=== PATIENT | female | born 1940 | race Caucasian/White ===

== ENCOUNTER 2017-03-24 08:43 | Outpatient (CLI) | payer MEDICARE ==
--- NOTE | 2017-03-24 11:01 | ULT ---
ABDOMINAL AORTIC ULTRASOUND: HISTORY: Abdominal bruit noted on physical exam. FINDINGS: Abdominal aorta shows mild atherosclerotic change. No evidence of abdominal aortic aneurysm. Proxim al abdominal aorta measures up to 2.5 cm diameter. The mid abdominal aorta measures 1.8 cm. The dis mikel abdominal aorta measures 1.3 cm. IMPRESSION: Mild atherosclerotic changes seen in the abdominal aorta. No evidence of abdominal aortic aneurysm. POS: [facility]
== END 2017-03-24 08:44 | disposition home or self-care (01) ==
LOC: ULT 08:43
PROVIDERS: ATTEND Family Medicine
DX: R09.89 Other specified symptoms and signs involving the circulatory and respiratory systems (principal)
CPT/HCPCS: 76775

== ENCOUNTER 2017-08-18 08:42 | Outpatient (CLI) | payer MEDICARE, OTHER | END 2017-08-18 08:43 | disposition home or self-care (01) | LOC: BICMAMMO 08:42 | PROVIDERS: ATTEND Family Medicine | DX: N63.10 Unspecified lump in the right breast, unspecified quadrant (principal) | CPT/HCPCS: 76642; 77066; G0279 ==

== ENCOUNTER 2019-03-23 06:54 | Day surgery (SDC) | payer MEDICARE ==
[2019-03-22 15:21] VITALS: BMI 26.5
[2019-03-23 08:13] VITALS: BP 143/69; TEMP 98.4
--- NOTE | 2019-03-23 09:38 | RAD ---
Lumbar spine myelogram: 03/23/2019 COMPARISON: None HISTORY: Back pain, radiculopathy FINDINGS: Informed consent obtained prior to the procedure. Display Fabrication Supervisor imaging of the lumbar spine demonst rates incompletely imaged spinal stimulating leads extending into the thoracic region. Extensive atherosclerotic calcification the abdominal aorta is noted. There is anterolisthesis of L4 on L5 matilda uring 7 mm. There is prominent facet hypertrophy at L4-5 and L5-S1 with prominent disc space narrowing and degenerative endplate change at the lumbosacral junction. Prominent right hip degenerat jagruti joint disease. There is a suture line within the pelvis. The patient was placed on the fluoroscopic table in the oblique prone position and skin overlying the lower lumbar spine was prepped and draped in normal sterile fashion. Skin overlying the L3-4 level was anesthetized with 1% buffered lidocaine. With intermittent fluoroscopic guidance, a 22-gauge spin al needle was advanced into the thecal sac and removal of the stylet yields clear cerebrospinal fluid. Subsequently, approximately 10 cc of iodinated contrast media was injected outlining nerve roots of t he cauda equina and filling the thecal sac. Needle was removed. Patient tolerated the procedure well. Patient was sent to the CT scanner for CT myelogram of the lumbar spine. Exposure data: 1.2 minutes of fluoroscopic time, 406.6 mcg/sq m. IMPRESSION: Successful myelogram of the lumbar spine.
--- NOTE | 2019-03-23 09:47 | CT ---
CT myelogram of thelumbar spine: 03/23/2019 COMPARISON:None available HISTORY:Back pain and radiculopathy TECHNIQUE: Serial axial CT imaging at2.5 mm through thelumbar spine with intrathecal contrast adminis tration. Coronal and sagittal reformatted imaging provided. Findings:Scattered atherosclerotic calcification of the abdominal aorta and its branches noted. There is nonspecific mild left-sided perinephric stranding with mild stranding adjacent to the renal pelvis and proximal left ureter. This may be related to inflammatory change or a degree of obstructive uropathy. Clinical correlation with urinalysis as well as consideration for dedicated CT of the abdomen/pelvis is advised. There is good opacification of the contents of the thecal sac. Conus medullaris terminates at the L1 level. T12-L1: There is mild disc space narrowing and mild disc bulge. Mild bilateral facet hypertrophy note d, right greater than left. No significant central canal or neural foraminal stenosis. L1-2: Mild disc bulge. Mild bilateral facet hypertrophy. No significant central canal or neural cathy inal stenosis. L2-3: Mild bilateral facet hypertrophy. No significant central canal or neural foraminal stenosis. L3-4: Mild bilateral facet hypertrophy. No significant central canal or neural foraminal stenosis. L4-5: Anterolisthesis of L4 on L5 measures 5 mm. There is prominent bilateral facet hypertrophy. Ther e is a moderate degree of central canal stenosis and there is moderate bilateral neural foraminal stenosis, left greater than right. L5-S1: There is disc space narrowing and vacuum disc formation with a disc osteophyte complex causing a mild degree of central canal stenosis. There is prominent bilateral facet hypertrophy with moderate/severe bilateral neural foraminal stenosis. No acute fracture or evidence of dislocation. No worrisome lytic or blastic bone lesion. Impression:Prominent lower lumbar spine degenerative change at L4-5 and L5-S1 with associated central canal and neural foraminal stenosis. There is stranding of the fat in the central perinephric region on the left and adjacent to the proxi mal left ureter which could be on the basis of inflammatory/infectious process or degree of obstructive uropathy. Recommend correlation with urinalysis and consideration for CT of the abdomen a nd pelvis CODE T
[2019-03-23] MEDS ORDERED: Iopamidol-M 200 41% 20 ML VIAL ONE (15:35)
== END 2019-03-23 09:45 | disposition home or self-care (01) ==
LOC: RAD 06:54 → EDSTATUS 08:00 → RAD 09:45
PROVIDERS: ATTEND Specialist
DX: M51.16 Intervertebral disc disorders with radiculopathy, lumbar region (principal); M48.061 Spinal stenosis, lumbar region without neurogenic claudication; M48.07 Spinal stenosis, lumbosacral region; M25.78 Osteophyte, vertebrae; I10 Essential (primary) hypertension; E78.5 Hyperlipidemia, unspecified; K21.9 Gastro-esophageal reflux disease without esophagitis; E03.9 Hypothyroidism, unspecified; M79.7 Fibromyalgia; Z79.899 Other long term (current) drug therapy; Z88.1 Allergy status to other antibiotic agents; Z88.2 Allergy status to sulfonamides; Z88.8 Allergy status to other drugs, medicaments and biological substances
CPT/HCPCS: 62304; 72132

== ENCOUNTER 2019-08-05 06:10 | Outpatient (CLI) | payer MEDICARE, OTHER | END 2019-08-05 06:11 | disposition home or self-care (01) | LOC: LABBT 06:10 | PROVIDERS: ATTEND Orthopaedic Surgery | DX: Z01.818 Encounter for other preprocedural examination (principal); Z11.59 Encounter for screening for other viral diseases; M16.11 Unilateral primary osteoarthritis, right hip | CPT/HCPCS: 93005; 93010 ==

== ENCOUNTER 2019-08-09 06:25 | Inpatient (IN) | payer MEDICARE, OTHER ==
--- NOTE | 2019-08-05 09:04 | HP ---
HISTORY OF PRESENT ILLNESS: The patient is a 79-year-old female with a long history of progressive problems with her right hip without injury. She has had pain with ambulation which has progressed despite rest, restriction of activities, lifestyle adjustments, use of a cane and a previous cortisone injection which gave her a temporary relief for 5 days. The pain is now interfering with day-to-day activities including walking, getting dressed, and sleeping. PAST MEDICAL HISTORY: The patient had a mild stroke in 2014. She has had chronic back problems and followed by Dr. Spicer with injections. She apparently had an accidental overdose of pain medication in January of 2019. She has a history of thyroid replacement, hypertension, left carotid endarterectomy. CURRENT MEDICATIONS: Include levothyroxine, lansoprazole, trazodone, amlodipine, Plavix, which she has stopped 1 week prior to anticipated surgery, losartan, pregabalin, diclofenac. ALLERGIES: BACTRIM, NALTREXONE, AND STATIN WHICH CAUSES WEAKNESS. FAMILY HISTORY: Otherwise unremarkable. SOCIAL HISTORY: Otherwise unremarkable. REVIEW OF SYSTEMS: Otherwise unremarkable. PHYSICAL EXAMINATION: GENERAL: Healthy female. HEENT: Unremarkable. NECK: Supple. CHEST: Clear. HEART: Regular rate and rhythm. ABDOMEN: Soft, nontender. PELVIC, RECTAL, BREASTS: Deferred. EXTREMITIES: Pertinent findings related to the right hip. Her leg lengths are equal. There is tenderness in the anterior and posterior hip. There is a right antalgic gait with a cane. There is pain with range of motion of the right hip and groin pain with internal rotation. NEUROVASCULAR: Intact. Distal pulses are trace. DIAGNOSTIC STUDIES: X-rays of the right hip reveal severe degenerative arthritis with no joint space remaining. There is a spinal cord stimulator visible in the left pelvic area. A CT scan of the lumbar spine reveals diffuse degenerative changes with some central and neural foraminal stenosis. IMPRESSION: 1. Degenerative arthritis of right hip. 2. Lumbar spondylosis. 3. History of thyroid replacement. 4. History of hypertension. PLAN: Right total hip replacement. The nature of the surgery, length of recovery, and potential complications such as infection, loss of motion, incomplete relief, thromboembolic phenomena, possible transfusion, need for revision have been discussed in detail. Job ID: [id number]
[2019-08-05 09:08] VITALS: BMI 30.2
[2019-08-05 10:31] LABS: #Basophils 0.1 thou/uL (0.0-0.2); #Eosinphils 0.4 thou/uL (0.0-0.7); #Lymphocytes 4.2 thou/uL (1.20-3.40); #Monocytes 1.1 thou/uL (0.11-0.59); #Neutrophils 7.1 thou/uL (1.40-6.50); %Basophils 0.7 % (0.0-1.0); %Lymphocytes 32.4 % (21.0-51.0); %Monocytes 8.7 % (0.0-10.0); %Neutrophils 55.3 % (42.0-75.0); Hemoglobin 13.3 g/dL (12.0-16.0); Mean Corpuscular HGB CONC 32.8 g/dL (32.0-36.0); Mean Corpuscular Hemoglobin 30.1 pg (27.0-31.0); Mean Corpuscular Volume 91.8 fL (78.0-98.0); Mean Platelet Volume 7.3 fL (7.4-10.4); Platelet Count 411 thou/uL (130-400); RBC Distribution Width 12.6 % (11.5-14.5); White Blood Cell (WBC) Count 12.8 thou/uL (4.8-10.8)
[2019-08-05 10:32] LABS: Bilirubin Negative (Negative); Blood, Urine Negative (Negative); Clarity Clear (Clear); Glucose, Urine (Dipstick) Normal (Negative); Leukocyte 250 Leu/uL (Negative); Nitrite Negative (Negative); Protein, Urine (Dipstick) Negative (Neg-Trace); RBC/HPF 0-3 HPF (0-3); Squamous Epithelial None Seen HPF (0-3); Urobilinogen Normal mg/dL (Less than 2)
[2019-08-05 10:36] LABS: INR-International Normal Ratio 0.9; Prothrombin Time 11.9 sec (12.0-14.7)
[2019-08-05 10:39] LABS: Bacteria/HPF 1+ HPF (None Seen)
[2019-08-05 11:03] LABS: Anion Gap 15 mmol/L (10-20); BUN (Urea Nitrogen) 11 mg/dL (9.8-20.1); Calc. Creatinine Clearance 0 mL/min (70-130); Calcium 9.5 mg/dL (7.8-10.44); Carbon Dioxide 23 mmol/L (23-31); Chloride 102 mmol/L (98-107); Estimated GFR-MDRD 57; Glucose 86 mg/dL (83-110); Potassium 4.3 mmol/L (3.5-5.1); Sodium 136 mmol/L (136-145)
[2019-08-05 18:20] LABS: SARS-CoV-2 MS2 Positive; SARS-CoV-2 N Gene Negative; SARS-CoV-2 S Gene Negative; SARS-CoV-2 orf1ab Negative
[2019-08-09] MEDS ORDERED: Sodium Chloride 0.9% 100 ML ONE (06:56)
[2019-08-09] MEDS ORDERED: Vancomycin 1 GM/200 ML BAG ONE (06:56)
[2019-08-09] MEDS ORDERED: Levofloxacin 500 mg/D5W 100 ml Premix Bag ONE (06:56)
[2019-08-09] MEDS ORDERED: Tranexamic Acid 1,000 MG/10 ML VIAL ONE ×2 (06:56→11:10)
[2019-08-09] MEDS ORDERED: Fentanyl 100 MCG/2 ML VIAL ONE ×5 (07:48→11:16)
[2019-08-09] MEDS ORDERED: Midazolam HCl 2 mg/2 ml Vial ONE (07:48)
[2019-08-09] MEDS ORDERED: Lidocaine 2% Jelly 5 ML TUBE ONE (08:59)
[2019-08-09] MEDS ORDERED: diphenhydrAMINE 50 MG/ML VIAL IVP PRN (10:47)
[2019-08-09] MEDS ORDERED: Naloxone HCl 0.4 mg/ml Vial IV PRN (10:47)
[2019-08-09] MEDS ORDERED: Promethazine HCl 25 MG/ML VIAL IM PRN ×2 (10:47→10:55)
[2019-08-09] MEDS ORDERED: Zolpidem Tartrate 5 MG TAB PO PRN ×2 (10:47→11:09)
[2019-08-09] MEDS ORDERED: Ondansetron PF 4 MG/2 ML Vial IVP PRN (10:47)
[2019-08-09] MEDS ORDERED: diphenhydrAMINE 50 MG/ML VIAL IM PRN (10:47)
[2019-08-09] MEDS ORDERED: Promethazine HCl 25 MG/ML VIAL SLOW IVP PRN ×2 (10:55→11:09)
[2019-08-09] MEDS ORDERED: Ondansetron HCl/PF 4 MG/2 ML Vial IVP PRN (10:55)
[2019-08-09] MEDS ORDERED: Tranexamic Acid 1,000 MG in Sodium Chloride 0.9% 100 ML IVPB SCH ×2 (11:00→11:09)
[2019-08-09] MEDS ORDERED: Communication Order-Pharmacy FS SCH (11:00)
[2019-08-09] MEDS ORDERED: Acetaminophen 325 MG TAB PO PRN (11:09)
[2019-08-09] MEDS ORDERED: Non-Formulary Item 1 EACH (Ibandronate Sodium [Boniva] 150 MG) PO SCH (11:09)
[2019-08-09] MEDS ORDERED: HYDROcodone/Acetaminophen 10/325 mg Tablet PO PRN ×2 (11:09)
[2019-08-09] MEDS ORDERED: Fentanyl 100 MCG/2 ML VIAL SLOW IVP PRN ×2 (11:09)
[2019-08-09] MEDS ORDERED: diphenhydrAMINE 25 MG CAP PO PRN (11:09)
[2019-08-09] MEDS ORDERED: Dicyclomine 10 MG CAP PO PRN (11:09)
[2019-08-09] MEDS ORDERED: traMADol HCl 50 MG TAB PO PRN (11:09)
[2019-08-09] MEDS ORDERED: HYDROmorphone 2 MG/ML VIAL ONE (11:35)
[2019-08-09] MEDS ORDERED: Calcium Polycarbophil 625 MG TAB PO SCH (12:00)
[2019-08-09] MEDS ORDERED: Ketorolac Tromethamine 30 MG/ML VIAL IVP SCH (12:00)
[2019-08-09] MEDS ORDERED: Aspirin 81 mg Enteric Coated Tablet PO SCH (12:00)
[2019-08-09] MEDS ORDERED: Amlodipine 5 MG TAB PO SCH (12:00)
[2019-08-09] MEDS ORDERED: Fenofibrate Nanocrystallized 145 MG TAB PO SCH (12:15)
[2019-08-09] MEDS ORDERED: Levothyroxine Sodium 88 MCG TAB PO SCH (12:15)
[2019-08-09] MEDS ORDERED: Losartan 25 MG TAB PO SCH (12:15)
[2019-08-09] MEDS ORDERED: Pregabalin 75 MG CAP PO SCH (12:15)
[2019-08-09] MEDS ORDERED: DULoxetine 30 MG CAP PO SCH (12:15)
--- NOTE | 2019-08-09 12:56 | OP ---
DATE OF PROCEDURE: 08/09/2019 LAST MODEL DEPARTMENT SUPERVISOR: Rodolfo Ramírez PA-C ANESTHESIA: General. PREOPERATIVE DIAGNOSIS: Degenerative arthritis, right hip. POSTOPERATIVE DIAGNOSIS: Degenerative arthritis, right hip. PROCEDURE PERFORMED: Right total hip replacement with uncemented Angel[place] Trident II Tritanium acetabular component 52 mm with X3 polyethylene insert and uncemented [place] Accolade II femoral stem #5 with 132-degree neck angle and standard neck length 36 mm metal head. DESCRIPTION OF PROCEDURE: After satisfactory anesthesia was induced in supine position, sequential compression devices were placed on the nonoperative leg throughout the procedure. The patient was then placed in lateral decubitus position. This position was held with hip positioning device. The patient's right hip was then prepped and draped in routine sterile fashion. The hip was approached through a lateral curvilinear incision, centered over the greater trochanter, carried down through the subcutaneous tissues, and bleeding points were controlled with Bovie cautery. IT band and gluteal fascia were split in line with the skin incision. The direct lateral approach to the hip joint was accomplished by dividing the anterior third of the gluteus medius and minimus tendons with Bovie cautery reflecting this as a single flap anteriorly and medially along with the vastus lateralis. Anterior capsulectomy was performed, and the hip was dislocated anteriorly. There was marked degenerative arthritis of the hip with large areas of exposed bone. The femoral neck was osteotomized with oscillating saw using a trial prosthesis as a guide. The acetabulum was exposed, cleaned of all soft tissue debris and rim osteophytes. The acetabulum was then reamed down to bleeding subchondral bone with a power reamer in a sequential fashion to a total of 51 mm. It was felt that 52 mm Trident II Tritanium acetabular component could be placed in a press-fit fashion. The permanent outer shell was then hammered in position. There was good fit and stability of the outer shell, and the permanent X3 polyethylene insert was snapped into place and the proximal femur exposed. It was opened with a box osteotome and rasped in sequence to accept a #5 Accolade II femoral rasp. Trial reduction with 132-degree angle trunnion, and a standard neck length 36 mm head gave appropriate size, fit, stability, maintenance of leg length. The hip was again dislocated anteriorly, and the trial components were removed. The permanent #5 Accolade II femoral stem was then hammered in position. There was again good fit and stability of the component. The permanent standard neck length 36 mm metal head was then placed on the trunnion. The hip again reduced and found to be stable. The hip was copiously irrigated with pulsatile lavage. The abductors were repaired with interrupted #2 Vicryl. IT band and gluteal fascia are repaired with interrupted #2 Vicryl and running #2 Quill. Subcutaneous tissue was closed with running 0 Quill suture, and the skin was closed with running subcuticular 3-0 Monoderm and SurgiSeal skin adhesive. Sterile dressing was applied. The patient turned to the supine position, a pillow was placed between her legs, and sequential compression device was applied to her operative leg. She was awakened and taken to the recovery room in stable condition. There were no apparent intraoperative complications. Estimated blood loss was 200 mL. Job ID: [id number]
[2019-08-09] MEDS ORDERED: Lidocaine 1% PF 5 ML VIAL ONE (13:19)
[2019-08-09] MEDS ORDERED: Rocuronium Bromide 10 MG/ML (10ML VIAL) ONE (13:19)
[2019-08-09] MEDS ORDERED: Succinylcholine Chloride 20 MG/ML 10 ml SYRINGE FS ONE (13:19)
[2019-08-09] MEDS ORDERED: PHENYLEPHRINE-NS 100 MCG/ML 10 ML SYRINGE ONE (13:19)
[2019-08-09] MEDS ORDERED: Ondansetron PF 4 MG/2 ML Vial ONE (13:19)
[2019-08-09] MEDS ORDERED: PROPOFOL 200 MG/20 ML VIAL ONE (13:19)
[2019-08-09] MEDS ORDERED: Dexamethasone 20 MG/5 ML VIAL ONE (13:19)
[2019-08-09] MEDS ORDERED: Labetalol HCl 100 MG/20 ML VIAL ONE (13:19)
[2019-08-09] MEDS ORDERED: EPHEDRINE 25 MG/5 ML SYRINGE ONE (13:19)
[2019-08-09] MEDS ORDERED: Glycopyrrolate 0.2 MG/ML 5 ML SYRINGE ONE (13:19)
--- NOTE | 2019-08-09 13:54 | RAD ---
TWO VIEWS RIGHT HIP: Date: 08-09-2019 History: Evaluate hip following arthroplasty. FINDINGS: The patient is status post total hip arthroplasty on the right. Post-operative fluid and gas noted at the post-surgical site. No acute fracture or dislocation. No evidence for hardware failure. IMPRESSION: Radiographic evidence of recent right total hip arthroplasty. POS: [facility]
[2019-08-09] MEDS: Sodium Chloride 0.9% 1,000 ML IV SCH ×2 (14:47→20:41)
[2019-08-09] MEDS: Ondansetron PF 4 MG/2 ML Vial IVP PRN (15:19)
--- NOTE | 2019-08-09 18:48 | PDOC.HOSPP ---
- Subjective Encounter Date: 08/09/19 Encounter Time: 18:35 Subjective: Consult for med mgmt s/p R PONCHO, HTN, Hypothyroid and DJD. Feels ok overall with some mild nausea. No CP, SOB. - Objective Vital Signs & Weight: Vital Signs (12 hours) Temp Pulse Resp BP Pulse Ox 08/09/19 13:40 97.7 F 90 18 116/57 L 97 Weight Weight 160 lb Result Diagrams: 08/05/19 10:15 08/05/19 10:15 Additional Labs: Microbiology 08/05/19 10:15 Urine clean catch Urine Culture - Final Laboratory Tests 08/05/19 11:05 COVID-19 PCR Not Detected EKG Reviewed by me: Yes (NSR in 90's, attenuated R-waves in precordial leads, no acute changes) Hospitalist ROS - Medication Medications: Active Medications Generic Name Dose Route Start Last Admin Trade Name Freq PRN Reason Stop Dose Admin Sodium Chloride 1,000 mls @ 100 mls/hr 08/09/19 11:09 08/09/19 14:47 Normal Saline 0.9% IV Not Given .Q10H SHARRI Ondansetron HCl 4 mg 08/09/19 11:09 08/09/19 15:19 Zofran IVP 4 mg Q6H PRN Administration Nausea/Vomiting - Exam General Appearance: NAD, awake alert Eye: PERRL, anicteric sclera ENT: normocephalic atraumatic, no oropharyngeal lesions Neck: supple, symmetric, no JVD, no thyromegaly, no lymphadenopathy Heart: RRR, no murmur, no gallops, no rubs, normal peripheral pulses Heart - other findings: S1, S2 Respiratory: CTAB, no wheezes, no rales, no ronchi, normal chest expansion Gastrointestinal: soft, non-tender, non-distended, normal bowel sounds, no palpable masses, no hepatomegaly Gastrointestinal - other findings: Sousa in place with travis urine Extremities: no cyanosis, 1+ LE edema Extremities - other findings: R hip with surgical dressing in place Skin: normal turgor Neurological: cranial nerve grossly intact, no new deficit Musculoskeletal: normal tone Psychiatric: normal affect, A&O x 3 Hosp A/P (1) HTN (hypertension) Code(s): I10 - ESSENTIAL (PRIMARY) HYPERTENSION Status: Chronic Qualifiers: Hypertension type: essential hypertension Qualified Code(s): I10 - Essential (primary) hypertension Plan: Resume home BP regimen, serial BP monitoring (2) Hypothyroid Code(s): E03.9 - HYPOTHYROIDISM, UNSPECIFIED Status: Chronic Plan: Resume Levothyroxine 88mcg daily (3) DJD (degenerative joint disease) Code(s): M19.90 - UNSPECIFIED OSTEOARTHRITIS, UNSPECIFIED SITE Status: Chronic Plan: Pain control, NSAIDs, PT/OT for mobilization (4) Carotid artery disease Code(s): I77.9 - DISORDER OF ARTERIES AND ARTERIOLES, UNSPECIFIED Status: Chronic Plan: Resume home Plavix in am - Plan continue antibiotics, PT/OT, aids social worker, incentive spirometry, out of bed/ ambulate, DVT proph w/SCDs Stable overall Continue DVT PPX OOB with PT Resume home BP regimen Incentive spirometry AM lab: CBC Thank you for the consult. Will continue to follow with primary service.
[2019-08-09] MEDS: Aspirin 81 mg Enteric Coated Tablet PO SCH (20:32)
[2019-08-09] MEDS: traZODone HCl 50 MG TAB PO SCH (20:32)
[2019-08-09] MEDS: Ketorolac Tromethamine 30 MG/ML VIAL IVP PRN (20:38)
[2019-08-09] MEDS: Mirtazapine 30 MG TAB PO SCH (20:51)
[2019-08-09] MEDS ORDERED: Vancomycin 1 GM in Premix Bag 1 BAG IVPB SCH (22:00)
[2019-08-10] MEDS: Ketorolac Tromethamine 30 MG/ML VIAL IVP PRN ×2 (04:14→17:06)
[2019-08-10] MEDS: Levothyroxine Sodium 88 MCG TAB PO SCH (05:07)
[2019-08-10 05:53] LABS: Hemoglobin 9.8 g/dL (12.0-16.0); Mean Corpuscular HGB CONC 34.2 g/dL (32.0-36.0); Mean Corpuscular Hemoglobin 31.3 pg (27.0-31.0); Mean Corpuscular Volume 91.4 fL (78.0-98.0); Mean Platelet Volume 7.5 fL (7.4-10.4); Platelet Count 318 thou/uL (130-400); RBC Distribution Width 12.6 % (11.5-14.5); Red Blood Cell (RBC) Count 3.12 mill/uL (4.20-5.40); White Blood Cell (WBC) Count 16.6 thou/uL (4.8-10.8)
[2019-08-10] MEDS: Sodium Chloride 0.9% 1,000 ML IV SCH ×2 (06:27→20:20)
[2019-08-10] MEDS: Ondansetron PF 4 MG/2 ML Vial IVP PRN ×2 (07:15→13:31)
[2019-08-10] MEDS: Fenofibrate Nanocrystallized 145 MG TAB PO SCH (08:44)
[2019-08-10] MEDS: Senokot S 8.6-50 MG TAB PO SCH ×2 (08:45→20:18)
[2019-08-10] MEDS: Multivitamin W/ Minerals 1 TAB PO SCH (08:45)
[2019-08-10] MEDS: DULoxetine 30 MG CAP PO SCH (08:45)
[2019-08-10] MEDS: Losartan 25 MG TAB PO SCH (08:46)
[2019-08-10] MEDS: Aspirin 81 mg Enteric Coated Tablet PO SCH ×2 (08:48→20:18)
[2019-08-10] MEDS: Ferrous Gluconate 324 MG TAB PO SCH ×2 (08:49→17:07)
[2019-08-10] MEDS: Pregabalin 75 MG CAP PO SCH (08:57)
[2019-08-10] MEDS ORDERED: Amlodipine 5 MG TAB PO SCH (09:00)
[2019-08-10] MEDS: Scopolamine 1.5 mg/72 hour Patch TD SCH (13:30)
[2019-08-10] MEDS: Calcium Polycarbophil 625 MG TAB PO SCH (13:31)
[2019-08-10] MEDS: fentaNYL Citrate/PF 2,000 MCG in Sodium Chloride 0.9% 60 ML IV PRN (16:46)
[2019-08-10] MEDS ORDERED: hydrALAZINE 20 MG/ML VIAL SLOW IVP PRN (18:59)
--- NOTE | 2019-08-10 19:02 | PDOC.HOSPP ---
- Subjective Encounter Date: 08/10/19 Encounter Time: 18:50 Subjective: f/u for HTN, Hypothyroid and R PONCHO POD #1. Feels ok overall with some R hip pain. No SOB, CP or fever. - Objective Vital Signs & Weight: Vital Signs (12 hours) Temp Pulse Resp BP BP Pulse Ox 08/10/19 15:56 98.3 F 98 18 173/72 H 96 08/10/19 11:22 98 F 80 18 125/72 94 L 08/10/19 08:49 75 08/10/19 08:00 94 L 08/10/19 07:18 97.7 F 75 18 122/65 94 L Weight Admit Weight 160 lb Weight 160 lb Result Diagrams: 08/10/19 05:43 08/05/19 10:15 Additional Labs: Microbiology 08/05/19 10:15 Urine clean catch Urine Culture - Final Laboratory Tests 08/05/19 08/05/19 10:15 11:05 WBC 12.8 H Hgb 13.3 COVID-19 PCR Not Detected Hospitalist ROS - Medication Medications: Active Medications Generic Name Dose Route Start Last Admin Trade Name Freq PRN Reason Stop Dose Admin Aspirin 81 mg 08/09/19 21:00 08/10/19 08:48 Ecotrin PO 81 mg BID SHARRI Administration Calcium Polycarbophil 1,250 mg 08/10/19 09:00 08/10/19 13:31 Fibercon PO 1,250 mg DAILY SHARRI Administration Duloxetine HCl 30 mg 08/10/19 09:00 08/10/19 08:45 Cymbalta PO 30 mg DAILY SHARRI Administration Fenofibrate 145 mg 08/10/19 09:00 08/10/19 08:44 Tricor PO 145 mg DAILY SHARRI Administration Ferrous Gluconate 324 mg 08/10/19 08:00 08/10/19 17:07 Fergon PO 324 mg BID-WM SHARRI Administration Fentanyl Citrate 2,000 mcg/ 100 mls @ 0 mls/hr 08/09/19 10:47 08/10/19 16:46 Sodium Chloride IV 100 mls INF PRN Administration Pain As Directed Sodium Chloride 1,000 mls @ 100 mls/hr 08/09/19 11:09 08/10/19 06:27 Normal Saline 0.9% IV Not Given .Q10H SHARRI Iron/Minerals/Multivitamins 1 tab 08/10/19 09:00 08/10/19 08:45 Theragran M PO 1 tab DAILY SHARRI Administration Ketorolac Tromethamine 15 mg 08/09/19 10:47 08/10/19 17:06 Toradol IVP 08/12/19 10:48 15 mg Q6H PRN Administration Moderate Pain (4-6) Levothyroxine Sodium 88 mcg 08/10/19 06:00 08/10/19 05:07 Synthroid PO 88 mcg 0600 SHARRI Administration Losartan Potassium 50 mg 08/10/19 09:00 08/10/19 08:46 Cozaar PO 50 mg DAILY SHARRI Administration Mirtazapine 30 mg 08/09/19 21:00 08/09/19 20:51 Remeron PO 30 mg HS SHARRI Administration Ondansetron HCl 4 mg 08/09/19 11:09 08/10/19 13:31 Zofran IVP 4 mg Q6H PRN Administration Nausea/Vomiting Pantoprazole Sodium 40 mg 08/10/19 09:00 08/10/19 08:45 Protonix PO 40 mg DAILY SHARRI Administration Pregabalin 75 mg 08/10/19 09:00 08/10/19 08:57 Lyrica PO 75 mg DAILY SHARRI Administration Scopolamine 1.5 mg 08/10/19 12:00 08/10/19 13:30 Transderm Scop TD 1.5 mg Q3D SHARRI Administration Senna/Docusate Sodium 2 tab 08/10/19 09:00 08/10/19 08:45 Senokot S PO 2 tab BID SHARRI Administration Trazodone HCl 50 mg 08/09/19 21:00 08/09/19 20:32 Desyrel PO 50 mg HS SHARRI Administration - Exam General Appearance: NAD, awake alert Eye: PERRL, anicteric sclera ENT: normocephalic atraumatic, no oropharyngeal lesions Neck: supple, symmetric, no JVD, no thyromegaly, no lymphadenopathy Heart: RRR, no murmur, no gallops, no rubs, normal peripheral pulses Respiratory: CTAB, no wheezes, no rales, no ronchi, normal chest expansion Gastrointestinal: soft, non-tender, non-distended, normal bowel sounds, no palpable masses Extremities: no cyanosis, no clubbing Extremities - other findings: R hip with surgical dressing in place Skin: normal turgor, no lesions Neurological: cranial nerve grossly intact, no new deficit Musculoskeletal: normal tone, normal strength Psychiatric: normal affect, A&O x 3 Hosp A/P (1) HTN (hypertension) Code(s): I10 - ESSENTIAL (PRIMARY) HYPERTENSION Status: Chronic Qualifiers: Hypertension type: essential hypertension Qualified Code(s): I10 - Essential (primary) hypertension Plan: Continue home BP regimen, PRN Hydralazine for SBP > 170 (2) Hypothyroid Code(s): E03.9 - HYPOTHYROIDISM, UNSPECIFIED Status: Chronic (3) DJD (degenerative joint disease) Code(s): M19.90 - UNSPECIFIED OSTEOARTHRITIS, UNSPECIFIED SITE Status: Chronic (4) Carotid artery disease Code(s): I77.9 - DISORDER OF ARTERIES AND ARTERIOLES, UNSPECIFIED Status: Chronic - Plan PT/OT, licensed social worker, incentive spirometry, out of bed/ambulate, DVT proph w/ SCDs Stable overall Continue DVT PPX OOB with PT Resume home BP regimen Hydralazine IV PRN Incentive spirometry AM lab: CBC
[2019-08-10] MEDS: Mirtazapine 30 MG TAB PO SCH (20:17)
[2019-08-10] MEDS: traZODone HCl 50 MG TAB PO SCH (20:18)
[2019-08-10] MEDS: Amlodipine 5 MG TAB PO SCH (20:18)
[2019-08-11] MEDS: Sodium Chloride 0.9% 1,000 ML IV SCH ×2 (03:54→13:09)
[2019-08-11] MEDS: Levothyroxine Sodium 88 MCG TAB PO SCH (06:02)
[2019-08-11 06:18] LABS: Hemoglobin 9.9 g/dL (12.0-16.0); Mean Corpuscular Volume 90.9 fL (78.0-98.0); Platelet Count 321 thou/uL (130-400); RBC Distribution Width 12.7 % (11.5-14.5); Red Blood Cell (RBC) Count 3.31 mill/uL (4.20-5.40); White Blood Cell (WBC) Count 14.1 thou/uL (4.8-10.8)
[2019-08-11] MEDS: Aspirin 81 mg Enteric Coated Tablet PO SCH ×2 (09:11→21:17)
[2019-08-11] MEDS: Fenofibrate Nanocrystallized 145 MG TAB PO SCH (09:11)
[2019-08-11] MEDS: Multivitamin W/ Minerals 1 TAB PO SCH (09:12)
[2019-08-11] MEDS: Ferrous Gluconate 324 MG TAB PO SCH ×2 (09:12→18:13)
[2019-08-11] MEDS: Calcium Polycarbophil 625 MG TAB PO SCH (09:12)
[2019-08-11] MEDS: DULoxetine 30 MG CAP PO SCH (09:12)
[2019-08-11] MEDS: Fluconazole 100 MG TAB PO SCH (09:12)
[2019-08-11] MEDS: Senokot S 8.6-50 MG TAB PO SCH ×2 (09:13→21:17)
[2019-08-11] MEDS: Pregabalin 75 MG CAP PO SCH (09:13)
[2019-08-11] MEDS: Losartan 25 MG TAB PO SCH (09:14)
--- NOTE | 2019-08-11 12:13 | PRG ---
DATE OF SERVICE: 08/11/2019 SUBJECTIVE: Lupe is a 79-year-old female, postoperative day 2 from a right total hip arthroplasty. Clinical panels demonstrate the patient has only ambulated 3 to 4 feet and she refused therapy yesterday. She has been very slow getting started and she complains of pain and debility. Otherwise, she has been very slow to hit milestones of independence in ADLs. OBJECTIVE: VITAL SIGNS: Temperature 98.5, pulse 103, respiratory rate 20, blood pressure 169/67. GENERAL: She is alert, appropriate, responsive with examiner. EXTREMITIES: There is no malrotation or shortening in the right lower extremity. She is neurovascularly intact. No strike through is appreciated. LABORATORY DATA: Hemoglobin and hematocrit 9.9 and 30.1. IMPRESSION: 1. A 79-year-old female is postoperative day 1 of right total hip arthroplasty with very slow progress, inability to make milestones of progress for independence in activities of daily living. Poor discharge candidacy at this point. 2. Tachycardia. 3. Hypertension. PLAN: I will have the case management specialist team perform post acute screening for possible inpatient rehabilitation when she thinks the patient benefit from greatly since she is not making much progress in acute stay. Recheck tomorrow. Job ID: [id number]
--- NOTE | 2019-08-11 16:30 | PDOC.HOSPP ---
- Subjective Encounter Date: 08/11/19 Encounter Time: 16:25 Subjective: f/u for HTN, Hypothyroid and s/p R PONCHO POD #2. Ambulated with PT today. Pain in R hip but improved with rest and pain meds. - Objective Vital Signs & Weight: Vital Signs (12 hours) Temp Pulse Pulse Resp BP BP Pulse Ox 08/11/19 11:49 98.3 F 99 20 173/71 H 92 L 08/11/19 10:17 100 150/68 H 08/11/19 08:35 98.5 F 103 H 20 169/67 H 92 L 08/11/19 07:36 95 Weight Admit Weight 160 lb Weight 160 lb I&O: 08/10/19 08/11/19 08/12/19 06:59 06:59 06:59 Intake Total 1940 Output Total 3650 Balance -1710 Result Diagrams: 08/11/19 05:50 08/05/19 10:15 Additional Labs: Microbiology 08/05/19 10:15 Urine clean catch Urine Culture - Final Laboratory Tests 08/05/19 08/05/19 10:15 11:05 WBC 12.8 H Hgb 13.3 COVID-19 PCR Not Detected Hospitalist ROS - Medication Medications: Active Medications Generic Name Dose Route Start Last Admin Trade Name Freq PRN Reason Stop Dose Admin Amlodipine Besylate 5 mg 08/10/19 21:00 08/10/19 20:18 Norvasc PO 5 mg HS SHARRI Administration Aspirin 81 mg 08/09/19 21:00 08/11/19 09:11 Ecotrin PO 08/13/19 21:01 81 mg BID SHARRI Administration Calcium Polycarbophil 1,250 mg 08/10/19 09:00 08/11/19 09:12 Fibercon PO 1,250 mg DAILY SHARRI Administration Cholecalciferol 2,000 units 08/10/19 21:00 08/10/19 20:17 Vitamin D3 PO 2,000 units HS SHARRI Administration Duloxetine HCl 30 mg 08/10/19 09:00 08/11/19 09:12 Cymbalta PO 30 mg DAILY SHARRI Administration Fenofibrate 145 mg 08/10/19 09:00 08/11/19 09:11 Tricor PO 145 mg DAILY SHARRI Administration Ferrous Gluconate 324 mg 08/10/19 08:00 08/11/19 09:12 Fergon PO 324 mg BID-WM SHARRI Administration Fluconazole 100 mg 08/11/19 09:00 08/11/19 09:12 Diflucan PO 100 mg DAILY SHARRI Administration Fentanyl Citrate 2,000 mcg/ 100 mls @ 0 mls/hr 08/09/19 10:47 08/10/19 16:46 Sodium Chloride IV 100 mls INF PRN Administration Pain As Directed Sodium Chloride 1,000 mls @ 100 mls/hr 08/09/19 11:09 08/11/19 03:54 Normal Saline 0.9% IV 1,000 mls .Q10H SHARRI Administration Iron/Minerals/Multivitamins 1 tab 08/10/19 09:00 08/11/19 09:12 Theragran M PO 1 tab DAILY SHARRI Administration Ketorolac Tromethamine 15 mg 08/09/19 10:47 08/10/19 17:06 Toradol IVP 08/12/19 10:48 15 mg Q6H PRN Administration Moderate Pain (4-6) Levothyroxine Sodium 88 mcg 08/10/19 06:00 08/11/19 06:02 Synthroid PO 88 mcg 0600 SHARRI Administration Losartan Potassium 50 mg 08/10/19 09:00 08/11/19 09:14 Cozaar PO 50 mg DAILY SHARRI Administration Mirtazapine 30 mg 08/09/19 21:00 08/10/19 20:17 Remeron PO 30 mg HS SHARRI Administration Ondansetron HCl 4 mg 08/09/19 11:09 08/10/19 13:31 Zofran IVP 4 mg Q6H PRN Administration Nausea/Vomiting Pantoprazole Sodium 40 mg 08/10/19 09:00 08/11/19 09:14 Protonix PO 40 mg DAILY SHARRI Administration Pregabalin 75 mg 08/10/19 09:00 08/11/19 09:13 Lyrica PO 75 mg DAILY SHARRI Administration Scopolamine 1.5 mg 08/10/19 12:00 08/10/19 13:30 Transderm Scop TD 1.5 mg Q3D SHARRI Administration Senna/Docusate Sodium 2 tab 08/10/19 09:00 08/11/19 09:13 Senokot S PO 2 tab BID SHARRI Administration Trazodone HCl 50 mg 08/09/19 21:00 06/09/20 20:18 Desyrel PO 50 mg HS SHARRI Administration - Exam General Appearance: NAD, awake alert Eye: PERRL, anicteric sclera ENT: normocephalic atraumatic, no oropharyngeal lesions Neck: supple, symmetric, no JVD, no thyromegaly, no lymphadenopathy Heart: RRR, no murmur, no gallops, no rubs, normal peripheral pulses Respiratory: CTAB, no wheezes, no rales, no ronchi, normal chest expansion Gastrointestinal: soft, non-tender, non-distended, normal bowel sounds, no palpable masses Extremities: no cyanosis, no clubbing Skin: normal turgor, no lesions Neurological: cranial nerve grossly intact, no new deficit Musculoskeletal: normal tone, normal strength Psychiatric: normal affect, A&O x 3 Hosp A/P (1) HTN (hypertension) Code(s): I10 - ESSENTIAL (PRIMARY) HYPERTENSION Status: Chronic Qualifiers: Hypertension type: essential hypertension Qualified Code(s): I10 - Essential (primary) hypertension Plan: Labile due to pain/surgery, continue Amlodipine/Losartan, likely contribution from IVF's (2) Hypothyroid Code(s): E03.9 - HYPOTHYROIDISM, UNSPECIFIED Status: Chronic Plan: Continue Synthroid 88mcg daily (3) DJD (degenerative joint disease) Code(s): M19.90 - UNSPECIFIED OSTEOARTHRITIS, UNSPECIFIED SITE Status: Chronic (4) Carotid artery disease Code(s): I77.9 - DISORDER OF ARTERIES AND ARTERIOLES, UNSPECIFIED Status: Chronic - Plan continue antibiotics, PT/OT, social media sr strategy manager, incentive spirometry, out of bed/ ambulate, DVT proph w/SCDs Stable overall Continue DVT PPX OOB with PT continue Losartan/Amlodipine Saline lock IVF's Hydralazine IV PRN Incentive spirometry Rehab options
[2019-08-11] MEDS: Amlodipine 5 MG TAB PO SCH (21:16)
[2019-08-11] MEDS: traZODone HCl 50 MG TAB PO SCH (21:17)
[2019-08-11] MEDS: Mirtazapine 30 MG TAB PO SCH (21:17)
[2019-08-12] MEDS: Sodium Chloride 0.9% 1,000 ML IV SCH ×3 (00:16→18:50)
[2019-08-12] MEDS: fentaNYL Citrate/PF 2,000 MCG in Sodium Chloride 0.9% 60 ML IV PRN (06:28)
[2019-08-12] MEDS: Levothyroxine Sodium 88 MCG TAB PO SCH (06:28)
[2019-08-12] MEDS: Pregabalin 75 MG CAP PO SCH (09:06)
[2019-08-12] MEDS: DULoxetine 30 MG CAP PO SCH (09:06)
[2019-08-12] MEDS: Fluconazole 100 MG TAB PO SCH (09:07)
[2019-08-12] MEDS: Losartan 25 MG TAB PO SCH (09:07)
[2019-08-12] MEDS: Aspirin 81 mg Enteric Coated Tablet PO SCH ×2 (09:08→20:29)
[2019-08-12] MEDS: Ferrous Gluconate 324 MG TAB PO SCH ×2 (09:08→16:24)
[2019-08-12] MEDS: Multivitamin W/ Minerals 1 TAB PO SCH (09:08)
[2019-08-12] MEDS: Senokot S 8.6-50 MG TAB PO SCH ×2 (09:09→20:28)
[2019-08-12] MEDS: Calcium Polycarbophil 625 MG TAB PO SCH (11:12)
[2019-08-12] MEDS: Fenofibrate Nanocrystallized 145 MG TAB PO SCH (11:13)
--- NOTE | 2019-08-12 16:23 | PDOC.HOSPP ---
- Subjective Encounter Date: 08/12/19 Encounter Time: 16:15 Subjective: f/u for R PONCHO POD #3. Feels ok overall and working with PT/OT. No cough or SOB. - Objective Vital Signs & Weight: Vital Signs (12 hours) Temp Pulse Resp BP Pulse Ox 08/12/19 15:28 98.2 F 95 14 144/69 H 95 08/12/19 11:58 98.2 F 81 14 156/61 H 95 08/12/19 10:04 94 L 08/12/19 08:35 94 L 08/12/19 08:08 98.2 F 79 14 169/76 H 94 L Weight Admit Weight 160 lb Weight 160 lb I&O: 08/11/19 08/12/19 08/13/19 06:59 06:59 06:59 Intake Total 1940 1660 Output Total 3650 2850 Balance -1710 -1190 Result Diagrams: 08/11/19 05:50 08/05/19 10:15 Additional Labs: Microbiology 08/05/19 10:15 Urine clean catch Urine Culture - Final Laboratory Tests 08/05/19 08/05/19 10:15 11:05 WBC 12.8 H Hgb 13.3 COVID-19 PCR Not Detected Hospitalist ROS - Medication Medications: Active Medications Generic Name Dose Route Start Last Admin Trade Name Niranjanq PRN Reason Stop Dose Admin Amlodipine Besylate 5 mg 08/10/19 21:00 08/11/19 21:16 Norvasc PO 5 mg HS SHARRI Administration Aspirin 81 mg 08/09/19 21:00 08/12/19 09:08 Ecotrin PO 08/13/19 21:01 81 mg BID SHARRI Administration Calcium Polycarbophil 1,250 mg 08/10/19 09:00 08/12/19 11:12 Fibercon PO 1,250 mg DAILY SHARRI Administration Cholecalciferol 2,000 units 08/10/19 21:00 08/11/19 21:17 Vitamin D3 PO 2,000 units HS SHARRI Administration Duloxetine HCl 30 mg 08/10/19 09:00 08/12/19 09:06 Cymbalta PO 30 mg DAILY SHARRI Administration Fenofibrate 145 mg 08/10/19 09:00 08/12/19 11:13 Tricor PO 145 mg DAILY SHARRI Administration Ferrous Gluconate 324 mg 08/10/19 08:00 08/12/19 09:08 Fergon PO 324 mg BID-WM SHARRI Administration Fluconazole 100 mg 08/11/19 09:00 08/12/19 09:07 Diflucan PO 100 mg DAILY SHARRI Administration Fentanyl Citrate 2,000 mcg/ 100 mls @ 0 mls/hr 08/09/19 10:47 08/12/19 06:28 Sodium Chloride IV 100 mls INF PRN Administration Pain As Directed Sodium Chloride 1,000 mls @ 100 mls/hr 08/09/19 11:09 08/12/19 09:12 Normal Saline 0.9% IV 1,000 mls .Q10H SHARRI Administration Iron/Minerals/Multivitamins 1 tab 08/10/19 09:00 08/12/19 09:08 Theragran M PO 1 tab DAILY SHARRI Administration Levothyroxine Sodium 88 mcg 08/10/19 06:00 08/12/19 06:28 Synthroid PO 88 mcg 0600 SHARRI Administration Losartan Potassium 50 mg 08/10/19 09:00 08/12/19 09:07 Cozaar PO 50 mg DAILY SHARRI Administration Mirtazapine 30 mg 08/09/19 21:00 08/11/19 21:17 Remeron PO 30 mg HS SHARRI Administration Ondansetron HCl 4 mg 08/09/19 11:09 08/10/19 13:31 Zofran IVP 4 mg Q6H PRN Administration Nausea/Vomiting Pantoprazole Sodium 40 mg 08/10/19 09:00 08/12/19 09:07 Protonix PO 40 mg DAILY SHARRI Administration Pregabalin 75 mg 08/10/19 09:00 08/12/19 09:06 Lyrica PO 75 mg DAILY SHARRI Administration Scopolamine 1.5 mg 08/10/19 12:00 08/10/19 13:30 Transderm Scop TD 1.5 mg Q3D SHARRI Administration Senna/Docusate Sodium 2 tab 08/10/19 09:00 08/12/19 09:09 Senokot S PO 2 tab BID SHARRI Administration Trazodone HCl 50 mg 08/09/19 21:00 08/11/19 21:17 Desyrel PO 50 mg HS SHARRI Administration - Exam General Appearance: NAD, awake alert Eye: PERRL, anicteric sclera ENT: normocephalic atraumatic, no oropharyngeal lesions Neck: supple, symmetric, no JVD, no thyromegaly, no lymphadenopathy Heart: RRR, no murmur, no gallops, no rubs, normal peripheral pulses Heart - other findings: S1, S2 Respiratory: CTAB, no wheezes, no rales, no ronchi, normal chest expansion Gastrointestinal: soft, non-tender, non-distended, normal bowel sounds, no palpable masses Extremities: no cyanosis, no clubbing Extremities - other findings: R hip with surgical dressing in place Skin: normal turgor Neurological: cranial nerve grossly intact, no new deficit Musculoskeletal: normal tone, generalized weakness Psychiatric: normal affect, A&O x 3 Hosp A/P (1) HTN (hypertension) Code(s): I10 - ESSENTIAL (PRIMARY) HYPERTENSION Status: Chronic Qualifiers: Hypertension type: essential hypertension Qualified Code(s): I10 - Essential (primary) hypertension Plan: Continue home BP regimen, mildly labile (2) Hypothyroid Code(s): E03.9 - HYPOTHYROIDISM, UNSPECIFIED Status: Chronic Plan: Continue Synthroid (3) DJD (degenerative joint disease) Code(s): M19.90 - UNSPECIFIED OSTEOARTHRITIS, UNSPECIFIED SITE Status: Chronic (4) Carotid artery disease Code(s): I77.9 - DISORDER OF ARTERIES AND ARTERIOLES, UNSPECIFIED Status: Chronic - Plan continue antibiotics, 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
[2019-08-12] MEDS: diphenhydrAMINE 25 MG CAP PO PRN (16:24)
[2019-08-12] MEDS: Mirtazapine 30 MG TAB PO SCH (20:29)
[2019-08-12] MEDS: Amlodipine 5 MG TAB PO SCH (20:29)
[2019-08-12] MEDS: traZODone HCl 50 MG TAB PO SCH (20:29)
[2019-08-13] MEDS: Sodium Chloride 0.9% 1,000 ML IV SCH (03:53)
[2019-08-13] MEDS: Levothyroxine Sodium 88 MCG TAB PO SCH (05:11)
[2019-08-13] MEDS: Losartan 25 MG TAB PO SCH (08:28)
[2019-08-13] MEDS: Calcium Polycarbophil 625 MG TAB PO SCH (08:28)
[2019-08-13] MEDS: Aspirin 81 mg Enteric Coated Tablet PO SCH (08:28)
[2019-08-13] MEDS: Fluconazole 100 MG TAB PO SCH (08:28)
[2019-08-13] MEDS: Senokot S 8.6-50 MG TAB PO SCH (08:28)
[2019-08-13] MEDS: Ferrous Gluconate 324 MG TAB PO SCH (08:29)
[2019-08-13] MEDS: Multivitamin W/ Minerals 1 TAB PO SCH (08:29)
[2019-08-13] MEDS: Pregabalin 75 MG CAP PO SCH (08:29)
[2019-08-13] MEDS: DULoxetine 30 MG CAP PO SCH (08:29)
[2019-08-13] MEDS: Fenofibrate Nanocrystallized 145 MG TAB PO SCH (09:18)
[2019-08-13] MEDS: diphenhydrAMINE 25 MG CAP PO PRN (09:20)
[2019-08-13] MEDS: Scopolamine 1.5 mg/72 hour Patch TD SCH (11:06)
[2019-08-13 15:30] VITALS: TEMP 98.5
[2019-08-13 15:32] VITALS: BP 144/69
--- NOTE | 2019-08-13 20:54 | DIS ---
DATE OF ADMISSION: 08/09/2019 DATE OF DISCHARGE: 08/13/2019 DISCHARGE DIAGNOSES: 1. Hypertension, stable. 2. Hypothyroidism, chronic, stable. 3. Degenerative joint disease. 4. 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 PRIMARY SERVICE ATTENDING: Jerardo Mata MD, inpatient hospitalist for medical management. PERTINENT LABORATORY AND X-RAY FINDINGS: CBC showed a white blood cell count ranged between 12.8 to 16.6, hemoglobin ranged between 9.8 to 13.3. COVID-19 PCR not detected, 08/05/2019. Urine culture dated 08/05/2019, showed [phone] colonies of mixed skin yordan. HOSPITAL COURSE: The patient was admitted under the Orthopedic Surgery Service, undergoing elective right total hip arthroplasty 08/09/2019. The patient was managed postoperatively with stable vital signs throughout the hospital course. The patient was resumed on her regular blood pressure regimen, as well as home regimen of levothyroxine. The patient was evaluated postoperatively for inpatient rehab, however was not deemed appropriate candidate and will transition home with Home Health Services on 08/13/2019. DISCHARGE MEDICATIONS: 1. Amlodipine 5 mg p.o. daily. 2. Vitamin D3 of 2000 units p.o. daily. 3. Plavix 75 mg p.o. at bedtime. 4. Diclofenac one application topically q.i.d. p.r.n. 5. Dicyclomine 10 mg p.o. b.i.d. p.r.n. 6. Cymbalta 30 mg p.o. daily. 7. Estrace vaginally daily. 8. Fenofibrate 160 mg p.o. daily. 9. Boniva 150 mg p.o. monthly. 10. Dexilant 30 mg p.o. daily. 11. Levothyroxine 88 mcg p.o. daily. 12. Losartan 50 mg p.o. daily. 13. Mirtazapine 30 mg p.o. at bedtime. 14. Pregabalin 75 mg p.o. daily. 15. Tramadol 50 mg p.o. q.i.d. p.r.n. 16. Trazodone 50 mg p.o. at bedtime. 17. Enteric-coated aspirin 81 mg p.o. b.i.d. FOLLOWUP: The patient will follow up with Dr. Jerardo Mata on 08/25/2019 at 1:30 p.m. The patient will follow up with Dr. Kelley Spicer. CONDITION ON DISCHARGE: Stable. ACTIVITY: Ad-dandy. Rolling walker for ambulation. DIET: Heart healthy. CODE STATUS: Full. DISPOSITION: Home with [facility], 08/13/2019. Job ID: [id number]
[2019-08-13] MEDS ORDERED: Clopidogrel Bisulfate 75 MG TAB PO SCH (21:00)
== END 2019-08-13 15:36 | disposition home health service (06) | DRG 470 ==
LOC: SDC 06:25 → SJJU 13:59
PROVIDERS: ADMIT Orthopaedic Surgery; ATTEND Orthopaedic Surgery
PROC: 0SR902A Replacement of Right Hip Joint with Metal on Polyethylene Synthetic Substitute, Uncemented, Open Approach (ICD-10-PCS; principal; 2019-08-09)
DX: M16.11 Unilateral primary osteoarthritis, right hip (principal); I10 Essential (primary) hypertension; M47.816 Spondylosis without myelopathy or radiculopathy, lumbar region; E89.0 Postprocedural hypothyroidism; I77.9 Disorder of arteries and arterioles, unspecified; Z11.59 Encounter for screening for other viral diseases; Z86.73 Personal history of transient ischemic attack (TIA), and cerebral infarction without residual deficits; Z79.02 Long term (current) use of antithrombotics/antiplatelets; Z79.890 Hormone replacement therapy; Z79.899 Other long term (current) drug therapy; Z88.1 Allergy status to other antibiotic agents; Z88.8 Allergy status to other drugs, medicaments and biological substances
CPT/HCPCS: 36415; 80048; 81001; 85025; 85027; 85610; 86850; 86900; 86901; 87081; 87086; 87635; C1776; J1100; J1170; J1885; J1956; J2001; J2250; J2405; J2704; J3010; J3370; J3490; Q0163; U0003

== ENCOUNTER 2020-05-03 07:01 | Outpatient (CLI) | payer MEDICARE, OTHER ==
--- NOTE | 2020-05-03 10:31 | NM ---
Radionucleotide hepatobiliary scan and gallbladder ejection fraction HISTORY: Upper abdomen pain. FINDINGS: Early images show physiologic uptake of radiotracer throughout the hepatic parenchyma. Gall bladder first seen at 16 minutes. Uptake within the small bowel immediately after fatty meal ingestion. There is progression excretion of radiotracer from the gallbladder to the small bowel. Ejection fract ion calculated at 56%. IMPRESSION : Normal exam. Normal gallbladder ejection fraction.
== END 2020-05-03 07:02 | disposition home or self-care (01) ==
LOC: NM 07:01
PROVIDERS: ATTEND Internal Medicine Gastroenterology
DX: R10.13 Epigastric pain (principal); K21.9 Gastro-esophageal reflux disease without esophagitis
CPT/HCPCS: 78227; A9537

== ENCOUNTER 2020-06-24 12:49 | Observation (INO) | payer MEDICARE, OTHER ==
[2020-06-24 15:47] LABS: #Basophils 0.1 thou/uL (0.0-0.2); #Eosinphils 0.6 thou/uL (0.0-0.7); #Lymphocytes 3.6 thou/uL (1.20-3.40); #Monocytes 0.9 thou/uL (0.11-0.59); #Neutrophils 7.3 thou/uL (1.40-6.50); %Basophils 0.7 % (0.0-1.0); %Eosinophils 4.7 % (0.0-10.0); %Lymphocytes 28.8 % (21.0-51.0); %Monocytes 7.2 % (0.0-10.0); %Neutrophils 58.6 % (42.0-75.0); Hemoglobin 11.5 g/dL (12.0-16.0); Mean Corpuscular HGB CONC 33.6 g/dL (32.0-36.0); Mean Corpuscular Hemoglobin 28.6 pg (27.0-31.0); Mean Corpuscular Volume 85.1 fL (78.0-98.0); Mean Platelet Volume 6.6 fL (7.4-10.4); Platelet Count 514 thou/uL (130-400); RBC Distribution Width 13.2 % (11.5-14.5); Red Blood Cell (RBC) Count 4.03 mill/uL (4.20-5.40); White Blood Cell (WBC) Count 12.4 thou/uL (4.8-10.8)
[2020-06-24 15:54] LABS: Bilirubin Negative (Negative); Blood, Urine Negative (Negative); Clarity Clear (Clear); Glucose, Urine (Dipstick) Normal (Negative); Ketone, Urine Negative (Negative); Leukocyte Negative Leu/uL (Negative); Nitrite Negative (Negative); Protein, Urine (Dipstick) Negative (Neg-Trace); Specific Gravity, Urine 1.007 (1.002-1.036); Urobilinogen Normal mg/dL (Less than 2); pH, Urine 6.5 (5.0-9.0)
[2020-06-24 16:07] LABS: ALT (SGPT) 14 U/L (8-55); AST (SGOT) 18 U/L (5-34); Albumin 4.1 g/dL (3.4-4.8); Alkaline Phosphatase 104 U/L (40-110); Anion Gap 17 mmol/L (10-20); BUN (Urea Nitrogen) 9 mg/dL (9.8-20.1); Bilirubin, Total 0.2 mg/dL (0.2-1.2); Calc. Creatinine Clearance 0 mL/min (70-130); Calcium 9.3 mg/dL (7.8-10.44); Carbon Dioxide 21 mmol/L (23-31); Chloride 102 mmol/L (98-107); Globulin 3.3 g/dL (2.4-3.5); Glucose 113 mg/dL (83-110); Potassium 3.9 mmol/L (3.5-5.1); Protein, Total 7.4 g/dL (5.8-8.1); Sodium 136 mmol/L (136-145)
[2020-06-24] MEDS ORDERED: Ketorolac Tromethamine 30 MG/ML VIAL ONE (18:01)
[2020-06-24] MEDS ORDERED: Metoclopramide HCl 10 MG/2 ML VIAL ONE (18:01)
[2020-06-24] MEDS ORDERED: diphenhydrAMINE 50 MG/ML VIAL ONE (18:01)
[2020-06-24] MEDS ORDERED: Amlodipine 5 MG TAB PO SCH (19:30)
[2020-06-24] MEDS ORDERED: Ondansetron ODT 4 MG TAB PO PRN (19:39)
[2020-06-24] MEDS ORDERED: Estradiol 0.01% Vaginal Cream 42.5 gm Tube VAG PRN (19:39)
[2020-06-24] MEDS ORDERED: Calcium Carbonate 500 MG ChewTAB PO PRN (19:39)
[2020-06-24] MEDS ORDERED: Dicyclomine 10 MG CAP PO PRN (19:39)
[2020-06-24] MEDS: Clopidogrel Bisulfate 75 MG TAB PO SCH (20:41)
[2020-06-24] MEDS: traZODone HCl 50 MG TAB PO SCH (20:41)
[2020-06-24] MEDS: Acetaminophen 325 MG TAB PO PRN (20:41)
[2020-06-24 20:50] VITALS: BMI 30.6
[2020-06-25 05:01] LABS: #Basophils 0.1 thou/uL (0.0-0.2); #Eosinphils 0.6 thou/uL (0.0-0.7); #Lymphocytes 2.3 thou/uL (1.20-3.40); #Monocytes 0.8 thou/uL (0.11-0.59); #Neutrophils 5.3 thou/uL (1.40-6.50); %Basophils 0.7 % (0.0-1.0); %Eosinophils 6.9 % (0.0-10.0); %Lymphocytes 25.7 % (21.0-51.0); %Monocytes 8.3 % (0.0-10.0); %Neutrophils 58.4 % (42.0-75.0); Hemoglobin 10.9 g/dL (12.0-16.0); Mean Corpuscular HGB CONC 33.6 g/dL (32.0-36.0); Mean Corpuscular Hemoglobin 28.6 pg (27.0-31.0); Mean Platelet Volume 6.7 fL (7.4-10.4); Platelet Count 486 thou/uL (130-400); RBC Distribution Width 13.3 % (11.5-14.5); Red Blood Cell (RBC) Count 3.81 mill/uL (4.20-5.40); White Blood Cell (WBC) Count 9.1 thou/uL (4.8-10.8)
[2020-06-25] MEDS: Levothyroxine Sodium 88 MCG TAB PO SCH (05:08)
[2020-06-25 05:20] LABS: Hemoglobin A1c 6.3 % (4.0-6.0)
[2020-06-25 05:21] LABS: Anion Gap 14 mmol/L (10-20); BUN (Urea Nitrogen) 10 mg/dL (9.8-20.1); Calc. Creatinine Clearance 63 mL/min (70-130); Calcium 9.2 mg/dL (7.8-10.44); Carbon Dioxide 22 mmol/L (23-31); Cardiac Risk 7.1 (Less than 4.5); Chloride 104 mmol/L (98-107); Cholesterol 242 mg/dl (< 200 Desired); Glucose 114 mg/dL (83-110); HDL Cholesterol 34 mg/dL (>60 Neg Risk); Potassium 3.8 mmol/L (3.5-5.1); Sodium 136 mmol/L (136-145); Triglycerides 445 mg/dL (Less than 150)
[2020-06-25] MEDS: Enoxaparin Sodium 40 MG/0.4 ML SYRINGE SC SCH (08:34)
[2020-06-25] MEDS: Losartan 25 MG TAB PO SCH (08:35)
[2020-06-25] MEDS: Cholecalciferol 1,000 UNITS (25 MCG) TAB PO SCH (08:35)
[2020-06-25] MEDS: Amlodipine 5 MG TAB PO SCH (08:35)
[2020-06-25] MEDS: DULoxetine 30 MG CAP PO SCH (08:35)
[2020-06-25] MEDS: Fenofibrate Nanocrystallized 145 MG TAB PO SCH (08:36)
[2020-06-25] MEDS: Pregabalin 75 MG CAP PO SCH (08:36)
[2020-06-25] MEDS: Acetaminophen 325 MG TAB PO PRN (08:42)
[2020-06-25] MEDS ORDERED: Iopamidol 370 76% 50 ML VIAL FS ONE (10:16)
[2020-06-25 12:04] LABS: SARS-CoV-2 NAA Rapid Test Not Detected (NotDetected)
[2020-06-25] MEDS: traMADol HCl 50 MG TAB PO PRN (19:56)
[2020-06-25] MEDS: Clopidogrel Bisulfate 75 MG TAB PO SCH (19:58)
[2020-06-25] MEDS: traZODone HCl 50 MG TAB PO SCH (19:59)
[2020-06-25] MEDS: guaiFENesin ER 600 MG TAB PO SCH (19:59)
[2020-06-25] MEDS ORDERED: Atorvastatin Calcium 10 MG TAB PO SCH (21:00)
[2020-06-25] MEDS ORDERED: hydrALAZINE 20 MG/ML VIAL SLOW IVP PRN (21:05)
[2020-06-25] MEDS ORDERED: Nortriptyline HCl 25 MG CAP PO SCH (21:30)
[2020-06-26 04:42] LABS: #Basophils 0.1 thou/uL (0.0-0.2); #Eosinphils 0.5 thou/uL (0.0-0.7); #Lymphocytes 2.7 thou/uL (1.20-3.40); #Monocytes 0.9 thou/uL (0.11-0.59); #Neutrophils 6.5 thou/uL (1.40-6.50); %Basophils 0.6 % (0.0-1.0); %Eosinophils 5.1 % (0.0-10.0); %Lymphocytes 25.5 % (21.0-51.0); %Monocytes 8.2 % (0.0-10.0); %Neutrophils 60.6 % (42.0-75.0); Hemoglobin 10.3 g/dL (12.0-16.0); Mean Corpuscular HGB CONC 33.3 g/dL (32.0-36.0); Mean Corpuscular Hemoglobin 27.8 pg (27.0-31.0); Mean Corpuscular Volume 83.5 fL (78.0-98.0); Mean Platelet Volume 6.5 fL (7.4-10.4); Platelet Count 483 thou/uL (130-400); RBC Distribution Width 13.2 % (11.5-14.5); Red Blood Cell (RBC) Count 3.71 mill/uL (4.20-5.40); White Blood Cell (WBC) Count 10.7 thou/uL (4.8-10.8)
[2020-06-26 05:08] LABS: Anion Gap 13 mmol/L (10-20); BUN (Urea Nitrogen) 11 mg/dL (9.8-20.1); Calc. Creatinine Clearance 66 mL/min (70-130); Carbon Dioxide 24 mmol/L (23-31); Chloride 102 mmol/L (98-107); Glucose 107 mg/dL (83-110); Potassium 3.7 mmol/L (3.5-5.1); Sodium 135 mmol/L (136-145)
[2020-06-26] MEDS: Levothyroxine Sodium 88 MCG TAB PO SCH (06:24)
[2020-06-26] MEDS: Amlodipine 5 MG TAB PO SCH (07:43)
[2020-06-26] MEDS: Cholecalciferol 1,000 UNITS (25 MCG) TAB PO SCH (07:43)
[2020-06-26] MEDS: Fenofibrate Nanocrystallized 145 MG TAB PO SCH (07:43)
[2020-06-26] MEDS: guaiFENesin ER 600 MG TAB PO SCH (07:43)
[2020-06-26] MEDS: DULoxetine 30 MG CAP PO SCH (07:43)
[2020-06-26] MEDS: Pregabalin 75 MG CAP PO SCH (07:44)
[2020-06-26] MEDS: Losartan 25 MG TAB PO SCH (07:44)
[2020-06-26] MEDS: traMADol HCl 50 MG TAB PO PRN ×2 (07:44→13:34)
[2020-06-26] MEDS: Enoxaparin Sodium 40 MG/0.4 ML SYRINGE SC SCH (07:45)
[2020-06-26] MEDS ORDERED: Aspirin 81 mg Enteric Coated Tablet PO SCH (09:00)
[2020-06-26 11:44] VITALS: BP 163/74; TEMP 98
[2020-06-26] MEDS ORDERED: Nortriptyline HCl 25 MG CAP PO SCH (21:00)
[2020-06-27] MEDS ORDERED: Losartan 25 MG TAB PO SCH (09:00)
== END 2020-06-26 13:46 | disposition home or self-care (01) ==
LOC: ERS 12:49 → 2SE 17:05
PROVIDERS: ADMIT Family Medicine; ATTEND Family Medicine
DX: R53.1 Weakness (principal); R51.9 Headache, unspecified; I65.23 Occlusion and stenosis of bilateral carotid arteries; I65.01 Occlusion and stenosis of right vertebral artery; I10 Essential (primary) hypertension; E03.9 Hypothyroidism, unspecified; K21.9 Gastro-esophageal reflux disease without esophagitis; G89.29 Other chronic pain; D47.3 Essential (hemorrhagic) thrombocythemia; Z86.73 Personal history of transient ischemic attack (TIA), and cerebral infarction without residual deficits; Z79.02 Long term (current) use of antithrombotics/antiplatelets; Z79.83 Long term (current) use of bisphosphonates; Z79.899 Other long term (current) drug therapy; Z88.1 Allergy status to other antibiotic agents; Z88.2 Allergy status to sulfonamides; Z88.8 Allergy status to other drugs, medicaments and biological substances; Z98.1 Arthrodesis status; Z20.822 Contact with and (suspected) exposure to COVID-19
CPT/HCPCS: 70450; 70498; 80048 ×2; 80053; 80061; 81003; 83036; 84443; 85025 ×3; 85652; 86140; 93005; 93306; 93880; 94760; 96365; 96375; 97116; 97139 ×3; 97530; 99285; U0002; 36415; 96372; G0378; J0360; J1200; J1650; J1885; J2765; Q9967

== ENCOUNTER 2021-01-20 05:24 | Emergency (ER) | payer MEDICARE ==
[2021-01-20] MEDS ORDERED: Amlodipine 5 MG TAB ONE (05:54)
[2021-01-20] MEDS ORDERED: Cyclobenzaprine 10 MG TAB ONE (05:54)
[2021-01-20] MEDS ORDERED: Ketorolac Tromethamine 30 MG/ML VIAL ONE (05:54)
[2021-01-20] MEDS ORDERED: Losartan 25 MG TAB PO SCH (06:15)
== END 2021-01-20 07:30 | disposition home or self-care (01) ==
LOC: ERS 05:24
DX: S16.1XXA Strain of muscle, fascia and tendon at neck level, initial encounter (principal); I10 Essential (primary) hypertension; G43.909 Migraine, unspecified, not intractable, without status migrainosus; Z79.82 Long term (current) use of aspirin; X58.XXXA Exposure to other specified factors, initial encounter
CPT/HCPCS: 96372; 99284; J1885

== ENCOUNTER 2021-01-30 14:21 | Outpatient (CLI) | payer MEDICARE | END 2021-01-30 14:22 | disposition home or self-care (01) | LOC: BICRAD 14:21 | PROVIDERS: ATTEND Nurse Practitioner Family | DX: M47.812 Spondylosis without myelopathy or radiculopathy, cervical region (principal); Z98.1 Arthrodesis status | CPT/HCPCS: 72050 ==